=== PATIENT | female | born 1995 | race Caucasian/White ===

== ENCOUNTER 2020-07-15 13:24 | Emergency (ER) | payer OTHER, SELFPAY ==
[2020-07-15 13:32] VITALS: BP 122/86; PULSE 73; RESP 14; TEMP 37.3; O2SAT 99
--- NOTE | 2020-07-15 13:54 | ED.WOUNDLAC ---
HPI - Wound/Laceration General Chief Complaint: Wound/Laceration Stated Complaint: Rt eye swelling/pain Time Seen by Provider: 07/15/20 13:47 Source: patient and RN notes reviewed Mode of arrival: ambulatory Limitations: no limitations History of Present Illness HPI narrative: Patient presents today complaining of redness and swelling to the right upper eyelid, just below the eyebrow x2 days that has been worsening since onset. Patient states the area started out as a pimple before worsening. It has been draining clear fluid. Reports itching and slight pain. States she has had cellulitis to a similar area last year and needed IV antibiotics. Currently rates her pain /10 and has been applying Neosporin without relief. Related Data Allergies Allergy/AdvReac Type Severity Reaction Status Date / Time Cephalosporins Allergy Mild Unknown Verified 07/15/20 13:38 ceftriaxone [From Rocephin] Allergy Hives Verified 07/15/20 13:38 Review of Systems Review of Systems: Narrative: CONSTITUTIONAL: Denies body aches, fever, chills, or sweats. EYES: Denies visual changes, redness, or discharge. ENT: Denies rhinorrhea, congestion, sore throat, or otalgia. CARDIOVASCULAR: Denies chest pain, palpitations, or edema. RESPIRATORY: Denies cough or dyspnea. GASTROINTESTINAL: Denies abdominal pain, nausea, vomiting, or diarrhea. GENITOURINARY: Denies dysuria or hematuria. SKIN: +Swelling and redness to right upper eyelid MUSCULOSKELETAL: Denies back pain, joint pain, or myalgia. NEUROLOGIC: Denies headache, numbness, tingling, or weakness. PSYCH: Denies depression or anxiety. PMFSH Comments At time of signature, I have reviewed and agree with nursing past medical, surgical, social and family history unless otherwise noted. Please see nursing chart for further information. There is no relevant family history pertinent to the presenting complaint Exam Narrative: Exam Narrative: GENERAL: Well-appearing, well-nourished, and in no acute distress. HEAD: Normocephalic, atraumatic. EYES: EOMI. PERRL. No redness or drainage to the sclera. Conjunctivae normal. Right upper eyelid is mildly edematous and has a 1.5 cm round area of erythema and mild induration with a tiny scab. No fluctuance noted. Mildly tender to palpation. This edema does not extend above the eyebrow or to the lower eyelid. ENT: Mucous membranes pink and moist. NECK: Normal AROM. CHEST: No respiratory distress. EXTREMITIES: Normal range of motion. No edema. SKIN: Warm, dry, no rash. Capillary refill normal. Normal skin turgor. NEURO: No focal deficits. Alert and oriented x3. Gait steady. PSYCH: Normal affect. No signs of depression or anxiety. Course Vital Signs Vital signs: Vital Signs Temperature 99.2 F 07/15/20 13:32 Pulse Rate 73 07/15/20 13:32 Respiratory Rate 14 07/15/20 13:32 Blood Pressure 122/86 07/15/20 13:32 Pulse Oximetry 99 07/15/20 13:32 Temperature 99.2 F 07/15/20 13:32 Pulse Rate 73 07/15/20 13:32 Respiratory Rate 14 07/15/20 13:32 Blood Pressure 122/86 07/15/20 13:32 Pulse Oximetry 99 07/15/20 13:32 Reviewed. Pt has been instructed to follow up with her PCP regarding her elevated blood pressure today. MDM - Wound/Laceration Differential Diagnosis Differential diagnosis: Likely abscess and other (Cellulitis, impetigo) Critical Care Time Critical Care Time Critical Care Time: No Discharge Plan Discharge Clinical Impression: Cellulitis of right upper eyelid Patient Disposition: Home, Self-Care Condition: Stable Instructions: Antibiotic Form, Cellulitis (ED) Additional Instructions: Please take the Bactrim as prescribed until gone. Take ibuprofen or Aleve for swelling. Go to the ER immediately if symptoms worsen. Your blood pressure was elevated above 120/80 today at Urgent Care. This puts you above the threshold for follow up. Please schedule a followup visit with your personal physician as s
== END 2020-07-15 14:05 | disposition home or self-care (01) ==
PROVIDERS: Emergency Provider Nurse Practitioner
DX: H00.031 Abscess of right upper eyelid (principal)
CPT/HCPCS: 99203; G0463

== ENCOUNTER 2023-01-15 17:04 | Emergency (ER) | payer OTHER, SELFPAY ==
[2023-01-15 17:09] VITALS: BP 117/74; PULSE 101; RESP 20; TEMP 36.6; O2SAT 97
--- NOTE | 2023-01-15 17:37 | ED.DENTAL ---
HPI - Dental/Oral General Chief complaint: Dental/Oral Stated complaint: tooth pain Time Seen by Provider: 01/15/23 17:38 Mode of arrival: ambulatory Limitations: no limitations History of Present Illness HPI Narrative: 27-year-old female presents concern for toothache. She reports tooth pain in the right upper side of her mouth. She reports pain started today. She has taken ibuprofen. She denies problems swallowing, headache, fever. MD Complaint: tooth pain Related Data Allergies Allergy/AdvReac Type Severity Reaction Status Date / Time Cephalosporins Allergy Mild Unknown Verified 01/15/23 17:25 ceftriaxone [From Rocephin] Allergy Hives Verified 01/15/23 17:25 Review of Systems Review of Systems: CONSTITUTIONAL: Denies malaise, chills, sweats, or fever. EYES: Denies visual changes ENT: Denies rhinorrhea, congestion, sinus pain, otalgia or sore throat. Reports right upper dental pain CARDIOVASCULAR: Denies chest pain, palpitations RESPIRATORY: Denies cough or dyspnea. SKIN: Denies rash or itching. MUSCULOSKELETAL: Denies myalgia. NEUROLOGIC: Denies numbness, weakness, or headache. All systems reviewed & are unremarkable except as noted in HPI and below PMFSH Comments At time of signature, agree with nursing past medical, surgical, social and family history. There is no relevant family history pertinent to the presenting complaint Exam Narrative: GENERAL: Well-appearing, well-nourished, and in no acute distress. HEAD: Normocephalic, atraumatic. EYES: PERRLA, sclera clear ENT: Nares clear, turbinates pink, no rhinorrhea or epistaxis. Mucous membranes moist. TM pearly huizar with sharp light reflex bilaterally; no tragal tenderness. Oropharynx without erythema or lesions. Tonsils not enlarged and without exudate. Missing teeth, broken teeth, caries, tooth number two broken with a cane NECK: Supple. No lymphadenopathy. CHEST: No respiratory distress. Speaks in full sentences. HEART: Regular rate and rhythm. SKIN: Warm, dry, no visible rash. NEURO: Alert and oriented x3. PSYCH: Normal mood and affect Course Course Emergency Course: Patient is aware of diagnosis, understands and agrees to treatment plan. Anticipatory guidance given. Patient agrees to follow-up as directed and is aware of reasons to seek care at the emergency department. Portions of this record may have been created with voice recognition software Level of Care: Express Care Visit Vital Signs Vital signs: Vital Signs Temperature 97.9 F 01/15/23 17:09 Pulse Rate 101 H 01/15/23 17:09 Respiratory Rate 20 01/15/23 17:09 Blood Pressure 117/74 01/15/23 17:09 Pulse Oximetry 97 01/15/23 17:09 Oxygen Delivery Room Air 01/15/23 17:09 Temperature 97.9 F 01/15/23 17:09 Pulse Rate 101 H 01/15/23 17:09 Respiratory Rate 20 01/15/23 17:09 Blood Pressure 117/74 01/15/23 17:09 Pulse Oximetry 97 01/15/23 17:09 Oxygen Delivery Room Air 01/15/23 17:09 Reviewed. MDM - Dental/Oral MDM Narrative Medical decision making narrative: Patients pain and complaint coupled with physical findings are consistant with dentalgia. There are no focal signs of space occupying lesions that are compromising to the airway; no dysphagia, odynophagia, dysphonia, or dyspnea. No uvular deviation or soft palate edema. Patient is non-toxic appearing. The floor of the mouth is soft with no signs of Bhavesh's Angina; no induration below mandible, no neck pain. Patient is without trismus or drooling and able to swallow secretions. Patient is felt appropriate for discharge home with dental follow up. Differential Diagnosis Differential diagnosis: Likely gingival abscess, dental caries, toothache, dental abscess, fracture of tooth and aphthous ulcer Critical Care Time Critical Care Time Critical Care Time: No Discharge Plan Discharge Clinical Impression: Toothache Patient Disposition: Home, Self-Care Condition: Stable
== END 2023-01-15 17:45 | disposition home or self-care (01) ==
PROVIDERS: Emergency Provider Nurse Practitioner
DX: K08.89 Other specified disorders of teeth and supporting structures (principal)
CPT/HCPCS: 99213; G0463

== ENCOUNTER 2024-06-12 14:31 | Emergency (ER) | payer OTHER, SELFPAY ==
[2024-06-12 15:09] VITALS: BP 111/68; PULSE 83; RESP 16; TEMP 36.5; O2SAT 100
--- NOTE | 2024-06-12 16:21 | ED.SKABFB ---
HPI - Skin/Abscess/Foreign Bdy General Chief complaint: Skin/Abscess/Foreign Body Stated complaint: picking at right eye/swollen Time Seen by Provider: 06/12/24 15:35 Source: patient and RN notes reviewed Mode of arrival: ambulatory Limitations: no limitations History of Present Illness HPI narrative: 28-year-old female presents Express Care complaining of right eyelid swelling for 2 days. Patient has increased redness and swelling above the patient's right eye extending into her right eyebrow. Patient has a history of facial cellulitis and periorbital cellulitis. Patient reports she feels like her right vision is blurry and hazy. Patient reports that it hurts to move her right eye. Patient denies any fevers, chills, body aches, sore throat, congestion, dizziness, nausea, vomiting. Patient has been hospitalized in the past or cellulitis. Related Data Home Medications ?Medication ?Instructions ?Recorded ?Confirmed ?Last Taken ?Type iud 06/12/24 Unknown History Allergies Allergy/AdvReac Type Severity Reaction Status Date / Time Cephalosporins Allergy Mild Unknown Verified 01/15/23 17:25 vancomycin Allergy Unknown Unknown Verified 06/12/24 15:40 ceftriaxone (From Rocephin) Allergy Hives Verified 06/12/24 15:13 Review of Systems Review of Systems: CONSTITUTIONAL: Denies fever, chills, or sweats. EYES: Positive for blurry vision, negative for redness, or discharge. ENT: Denies rhinorrhea, congestion, sore throat, or otalgia. CARDIOVASCULAR: Denies chest pain, palpitations, or edema. RESPIRATORY: Denies cough or dyspnea. GASTROINTESTINAL: Denies abdominal pain, nausea, vomiting, or diarrhea. GENITOURINARY: Denies dysuria or hematuria. SKIN: Deniesr itching. Positive for rash and wound MUSCULOSKELETAL: Denies back pain, joint pain, or myalgia. NEUROLOGIC: Denies headache, numbness, or weakness. PSYCHIATRIC: Denies anxiety or depression. All other systems reviewed are negative, except as documented in HPI. PMFSH Comments At the time of my signature, I reviewed and agree with the nursing past medical, surgical, social, and family history. There is no relevant family history pertinent to the patient complaint. Exam Narrative: GENERAL: This is a well-nourished, well-developed adult, in no apparent distress. They are non ill-appearing, nontoxic appearing. HEAD: normocephalic, atraumatic. EYES: Sclera clear/white. Conjunctiva normal. Vision is grossly intact. Extraocular movements intact. Pupils PERRLA. EARS: External ears normal, auditory canals clear and without drainage, TMs normal without perforation. Hearing grossly intact. NOSE: External nose normal with no obvious nasal discharge, nasal turbinates without redness, no rhinorrhea. THROAT: Mucous membranes moist, posterior pharynx clear, without erythema or swelling. Uvula midline. NECK: Neck supple, non-tender without lymphadenopathy, masses or thyromegaly. CARDIOVASCULAR: Regular rate and rhythm without murmurs, gallops, or rubs. RESPIRATORY: Clear to auscultation. Breath sounds equal bilaterally. No wheezes, rales, or rhonchi. SKIN: Face: Cellulitis present above the patient's right eye and right eyelid extending into her right eyebrow and medial periorbital space. Area of cellulitis is measuring approximately 6 cm long. Area of cellulitis is erythematous. There is a small pustule superior to the cellulitis measuring approximately 1 cm x 1 cm surrounding erythema. No induration or area of fluctuance. No exudate. NEURO: awake, alert, and oriented to person, place and time. There were no obvious focal neurologic abnormalities. EXTREMITIES: No joint tenderness, effusion, or edema noted. Course Course Emergency Course: Portions of this record may have been created with voice recognition software [id number] patient called after being discharged requesting her prescriptions to be sent to [facility] instead because her pharmacy is currently closed. Prescriptions were canceled and sent to [facility] in in [place]. Level of Care: Express Care Visit Vital Signs Vital signs: Vital Signs Temperature 97.7 F 06/12/24 15:09 Pulse Rate 83 06/12/24 15:09 Respiratory Rate 16 06/12/24 15:09 Blood Pressure 111/68 06/12/24 15:09 Pulse Oximetry 100 06/12/24 15:09 Oxygen Delivery Room Air 06/12/24 15:09 Temperature 97.7 F 06/12/24 15:09 Pulse Rate 83 06/12/24 15:09 Respiratory Rate 16 06/12/24 15:09 Blood Pressure 111/68 06/12/24 15:09 Pulse Oximetry 100 06/12/24 15:09 Oxygen Delivery Room Air 06/12/24 15:09 Reviewed MDM - Skin/Abscess/Foreign Bdy MDM Narrative Medical decision making narrative: Given patient's vision changes in symptoms she was advised that she should go to the emergency department immediately for higher level care for further evaluation and management of her symptoms. Patient adamantly declined to go to the emergency room. Patient is signed out against medical advice. Will prescribe patient Augmentin and Bactrim to treat the cellulitis. Patient is allergic to cephalosporins but she has tolerated amoxicillin in the past. Patient advised to still go to the emergency department immediately and especially if her symptoms worsen today. Differential Diagnosis Differential diagnosis: Likely abscess of skin or subcutaneous tissue and other (Orbital cellulitis, periorbital cellulitis) Critical Care Time Critical Care Time Critical Care Time: No Discharge Plan Discharge Clinical Impression: Periorbital cellulitis of right eye Patient Disposition: Left Against Medical Advice Condition: Stable Additional Instructions: You have decided to leave against medical advice. It is recommended to go to the ER immediately. Please take antibiotics as directed. If your symptoms do not get better in 1 day you need to go to the ER immediately. Patient Language: Sudanese Prescriptions: New sulfamethoxazole-trimethoprim [Bactrim DS] 800-160 mg tablet 1 tablet PO Q12H 7 Days Qty: 14 0RF amoxicillin-pot clavulanate 875-125 mg tablet 1 tablet PO Q12H 7 Days Qty: 14 0RF No Action clindamycin HCl 300 mg capsule 300 mg PO Q8H 7 Days Qty: 21 0RF ibuprofen 800 mg tablet 800 mg PO Q6H PRN (Reason: pain) Qty: 30 0RF iud Follow-up/Referrals: PHYSICIAN,CUSTOMER SUPPORT ASSOCIATE [Primary Care Provider] - Time of Disposition: 15:39
--- OUTSIDE RECORDS SUMMARY | 2024-06-12 16:41 | XMS_ITS | Clinical Summary ---
Author Organization [facility] Address [address], [address] [address] Phone Care Team Providers Care Wire Coating Operator Metal Name Role Phone Chadwick Ballesteros MD Primary Care Provider [phone] Fercho Cooper MD Unavailable [phone] Allergies Active Allergy Reactions Criticality Noted Date Comments Ceftriaxone Sodium In Dextrose Hives 01/02 Medications mirtazapine (REMERON) 15 MG Tablet Take 15 mg by mouth daily. 5 Active lidocaine (XYLOCAINE) 2 % Gel 3 times daily. 0 5 Active ibuprofen (MOTRIN) 600 MG Tablet Take 600 mg by mouth every 6 hours as needed. 5 Active Etonogestrel (IMPLANON SC) by Subcutaneous route. Active Ondansetron HCl (ZOFRAN PO) Take 1 Tab by mouth as needed. Active lamoTRIgine (LAMICTAL) 25 MG Tablet Take 25 mg by mouth daily. Active polyethylene glycol (GLYCOLAX, MIRALAX) Pack Take 1 Packet by mouth daily. Dissolve in 4-8 oz of liquid. 90 Packet 3 5 Active other 1 Inch by Other route 2 times daily. 100 mL 1 5 Active Active Problems No known active problems Family History Medical History Relation Name Comments Cancer Maternal Grandfather prostat e Emphysema Maternal Grandfather Cancer Maternal Grandmother breast Diabetes Maternal Grandmother Heart Attack Maternal Grandmother Hypertension Maternal Grandmother Stroke Maternal Grandmother Diabetes Paternal Grandfather Relation Name Status Comments Maternal Grandfather Maternal Grandmother Paternal Grandfather Social History Tobacco Use Types Packs/Day Years Used Date Smoking Tobacco: Every Day Cigarettes 0.5 3 Smokeless Tobacco: Never Tobacco Cessation:Ready to Q uit: No; Counseling Given: Yes Alcohol Use Standard Drinks/Week Comments No 0 (1 standard drink = 0.6 oz pur e alcohol) Comments No Sex and Gender Information Value Date Recorded Sex Assigned at Not on file Legal Sex Female 9:58 PM CDT Gender Identity Not on file Sexual Orientation Not on file Last Filed Vital Signs Vital Sign Reading Time Taken Comments Blood Pressure 120/76 01/04/2015 11:05 AM PIN BALL MACHINE MECHANIC Pulse 84 01/04/2015 11:05 AM PIN BALL MACHINE MECHANIC Temperature 37.4 C (99.3 F) 01/04/2015 11:05 AM PIN BALL MACHINE MECHANIC Respiratory Rate - - Oxygen Saturation - - Inhaled Oxygen Concentration - - Weight 53.3 kg (117 lb 6.4 oz) 01/04/2015 11:05 AM PIN BALL MACHINE MECHANIC Height 162.6 cm (5' 4 ) 01/04/2015 11:05 AM PIN BALL MACHINE MECHANIC Body Mass Index 20.15 01/04/2015 11:05 AM PIN BALL MACHINE MECHANIC Plan of Treatment Health Maintenance Due Date Last Done Comments Hepatitis C Virus (HCV) Screening 1995 TdaP Immunization 1995 Hepatitis B Immunization (1 of 3 - 19+ 3-dose series) 09/01/2014 Pap Smear 09/01/2016 Influenza Immunization (#1) 2023 SARS-COV-2 Immunization ( season) 2023 Respiratory Syncytial Virus (RSV) Immunization (Adult) (1 - 1-dose 75+ series) 09/01/2070 Meningococcal Immunization (ACWY) Aged Out No longer eligible based on patient's age to complete this topic Pneumococcal Immunization Combined Aged Out No longer eligible based on patient's age to complete this topic Rotavirus Immunization Aged Out No lo nger eligible based on patient's age to complete this topic Insurance MEDICAID [employer] Care Teams Wire Coating Operator Metal Relationship Specialty Start Date End Date Chadwick Ballesteros MD [address] [address] PCP - General Pediatrics 01/04/15 Fercho Cooper MD [address] [address] General Surgery 01/19/15
--- OUTSIDE RECORDS SUMMARY | 2024-06-12 16:41 | XMS_ITS | Clinical Summary ---
Author Organization [facility] Address [address] [place] [address] Care Team Providers Care Metal Model Maker Name Role Phone Chadwick Ballesteros MD Primary Care Provider [phone] Source Comments [facility],non-owned Affiliates and Associated Physician Practices is amultiple site organization consisting of ambulatory clinics and hospital sitesin [place], [place], [place] and [place]. This disclosure is being madepursuant to the Care Everywhere program and may not contain all information available regarding this patient. Last updated 17.[facility] Allergies Active Allergy Reactions Criticality Noted Date Comments Ceftriaxone 02/22/2013 Medications * This document contains information received from the source organization and may not represent a complete record from that organization. * Be aware that medications may not be up to date on this document. Alwaysverify current medications with the patient. promethazine (PHENERGAN) 25 MG tablet Take 25 mg by mouth every 6 hours as needed for Nausea/Vomi ting. Active escitalopram (LEXAPRO) 10 MG tablet Take 10 mg by mouth once daily. Active cyclobenzaprine (FLEXERIL) 5 MG TABS tablet Take 5 mg by mouth 3 times daily as needed. Active naproxen (NAPROSYN) 500 MG tablet Take 1 Tab by mouth 2 times daily. 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 Anxiety 02/22/2013 Supervision of normal first 02/22/2013 Current smoker 02/22/2013 Family History Medical History Relation Name Comments Cancer Maternal Grandfather Aneurysm Maternal Grandmother CAD (Coronary Artery Disease) Maternal Grandmother Cancer - Breast Maternal Grandmother Diabetes Maternal Grandmother Kidney Disease Maternal Grandmother Spine problems Mother spondylo, dis abled Relation Name Status Comments Maternal Grandfather Maternal Grandmother Mother Social History Tobacco Use Types Packs/Day Years Used Date Smoking Tobacco: Every Day Cigarettes Alcohol Use Standard Drinks/Week Comments No 0 (1 standard drink = 0.6 oz pur e alcohol) Comments No Sex and Gender Information Value Date Recorded Sex Assigned at Not on file Legal Sex Female 6:57 AM DIRECTOR OF FOOD AND NUTRITION Gender Identity Not on file Sexual Orientation Not on file Last Filed Vital Signs Vital Sign Reading Time Taken Comments Blood Pressure 104/50 03/01/2014 12:00 AM DIRECTOR OF FOOD AND NUTRITION Pulse 60 03/01/2014 12:00 AM DIRECTOR OF FOOD AND NUTRITION Temperature - - Respiratory Rate - - Oxygen Saturation - - Inhaled Oxygen Concentration - - Weight 49.1 kg (108 lb 3.9 oz) 03/01/2014 12:52 PM DIRECTOR OF FOOD AND NUTRITION Height 159 cm (5' 2.6 ) 03/01/2014 12:52 PM DIRECTOR OF FOOD AND NUTRITION Body Mass Index 19.42 03/01/2014 12:52 PM DIRECTOR OF FOOD AND NUTRITION Plan of Treatment Health Maintenance Due Date Last Done Comments HIV SCREENING 09/01/2010 HEPATITIS C SCREENING 08/28/2013 DTAP/TDAP/TD VACCINES (1 - Tdap) 09/01/2014 HEPATITIS B VACCINE (1 of 3 - 19+ 3-dose series) 09/01/2014 PNEUMOCOCCAL VACCINE (1 of 2 - PCV) 09/01/2014 COVID-19 VACCINE (1 - 2023-2 5 season) 2023 DEPRESSION SCREENING 02/11/2024 INFLUENZA VACCINE (Season Ended) 2024 ZOSTER VACCINE (1 of 2) 09/01/2045 HIB VACCINE Aged Out No longer eligi ble based on patient's age to complete this topic HPV VACCINE Aged Out No longer eligi ble based on patient's age to complete this topic MENINGOCOCCAL (Group B) VACC INE SHARED DECISION-MAKING Aged Out No longer eligibl e based on patient's age to complete this topic MENINGOCOCCAL GROUPS A/C/Y/W VACCINE Aged Out No longer eligible b ased on patient's age to complete this topic Insurance MEDICAID - [place] Care Teams Metal Model Maker Relationship Specialty Start Date End Date Chadwick Ballesteros MD [address] [place] [address] PCP - General Pediatrics 02/16/14
--- OUTSIDE RECORDS SUMMARY | 2024-06-12 16:41 | XMS_ITS | Patient Health Record ---
Author Organization [facility] Address [address] [place] [address] Care Team Providers Care Office Administrator Name Role Phone Zoraidareji Madina Primary Care Provider [phone] Lorenzo Ann [phone] Allergies Allergen (clinical drug ingredient) Drug/Non Drug Allergy documented on EMR Reaction Allergy Type Onset Date Status Rocephin Unknown Drug Allergy Active Results Component Value Reference Range Notes 12 Panel Urine Drug Screen Reviewed date:01/13/2024 10:09:36 AM Interpretation: Performing Lab: Notes/Report: THC POS ZA POS MOP (OPI) neg AMP POS MET POS BAR neg BZO POS MDMA POS MTD neg OXY neg PCP neg BUP POS 12 Panel Urine Drug Screen Reviewed date:01/06/2024 10:53:02 AM Interpretation: Performing Lab: Notes/Report: THC POS ZA POS MOP (OPI) neg AMP POS MET POS BAR neg BZO POS MDMA POS MTD neg OXY neg PCP neg BUP POS Reason For Referral No Information Medications Medication SIG (Take, Route, Frequency, Duration) Notes Start Date End Date Status Buprenorphine HCl-Naloxone HCl 8-2 MG 1 film under the tongue and allow to dissolve Sublingual three times per day 01/13/2024 Active Immunizations Vaccine Route Administration Date Status Comme nts FLU VAC NO PRSV 4VAL 6 mo+ IM Intramuscular 01/06/2019 Administered pt tolerated we ll. Social History Tobacco Use: Social History Observation Description Date Details (start date - stop date) Current Smoker NA - NA Sex Assigned At : Social History Observation Description Sex Assigned At Female Tobacco Control (Standard) Question Answer Notes Tobacco use: Current smoker Section Notes: Problems Problem Type SNOMED Code ICD Code Onset Dates Problem Status W/U Status Risk Notes Problem Insomnia (517903232) Insomnia (G47.00) Active confirmed Problem 26474533 SANDRA (generalized anxiety disorder) (F41.1) Active confirmed Problem Overweight (BMI 25.0-29.9) (E66.3) Active confirmed Problem Hepatitis C antibody detected (finding) (987104409) Hepatitis C antibody positive in blood (R76.8) Active confirmed Problem 563422485 Tobacco use disorder (F17.200) Active confirmed Problem 36243179 Opioid use disorder, severe, dependence (F11.20) Active confirmed Problem Opioid use disorder (4030939011) Opioid use disorder (F11.99) Active confirmed Vital Signs Heart Rate 82 /min 01/13/2024 Temperature 98.2 degrees Fahrenheit 01/13/2024 Respiratory Rate 16 /min 01/13/2024 Blood pressure diastolic 76 mm Hg 01/13/2024 Oximetry 98 % 01/13/2024 Height 63 in 01/13/2024 Blood pressure systolic 120 mm Hg 01/13/2024 Weight 149.4 lbs 01/13/2024 BMI 26.46 kg/m2 01/13/2024 Encounters Encounter Location Date Provider Diagnosis [address] [place] [address] 01/06/2024 Jenia Heavens Opioid use disorder F11.99 ; Overweight (BMI 25.0-29.9) E66.3 and Tobacco use disorder F17.[address] [place] [address] 01/13/2024 Jenia Heavens Opioid use disorder F11.99 ; Opioid use disorder F11.99 ; Overweight (BMI 25.0-29.9) E66.3 and Tobacco use disorder F17.200 Assessments Encounter Date Diagnosis (ICD Code) Assessment Notes Treatment Notes Treatment Clinical Notes Section Notes 01/06/2024 Overweight (BMI 25.0-29.9) (ICD-10 - E66.3) 01/06/2024 Opioid use disorder (ICD-10 - F11.99) 01/13/2024 Overweight (BMI 25.0-29.9) (ICD-10 - E66.3) 01/13/2024 Opioid use disorder (ICD-10 - F11.99) 01/13/2024 Opioid use disorder (ICD-10 - F11.99) 01/13/2024 Tobacco use disorder (ICD-10 - F17.200) 01/06/2024 Tobacco use disorder (ICD-10 - F17.200) 01/06/2024 Other Discussed medication side effects, adverse effects, risks, benefits, as well as interactions. Encouraged non-use of opioids. Has naloxone. Recommended participation in recovery groups/counseling services. Agrees to contact office with questions or concerns. 01/13/2024 Other Patient agrees to take medication as prescribed. Discussed medication side effects, adverse effects, risks, benefits, as well as interactions. Encouraged non-use of opioids. Has naloxone. Recommended participation in recovery groups and/or counseling services. May contact office with questions or concerns. Plan Of Treatment No Information Insurance Providers Payer Name Payer Address Payer Phone Subscriber Number Group Number Insured Name Patient Relationship to Insured Coverage Start Date Coverage End Date [facility] [employer] [address] [place] [address] [id number] Matthews Betyvolodymyr Self - patient is the insured 1 [facility] Att Claims Department [address] [place] [address] [id number] Byron Betyvolodymyr Self - patient is the insured 9 0 [facility] [address] [place] [address] [id number] MatthewsJamaal Self - patient is the insured 0 0 [facility] [address] [place] [address] [id number] ByronJamaal Self - patient is the insured 1 Medications Administered Medication Instructions Date of Administration Dosage Notes Vivitrol 01/22/2019 380 mg pt tolerated w ell and nurse instructed pt to massage area over next couple of days and pt voiced understanding. Vivitrol 02/24/2019 380 mg Color Mixer Jesi moreno. Pt tolerated well. Voiced no questions or concerns at present time. Vivitrol 03/25/2019 380 mg Color Mixer: Alkermes Tolerated well, Instructed to massage site over next couple days to prevent knot. verbalized understanding. Vivitrol 04/22/2019 380 mg Color Mixer A lkermes Pt tolerated procedure well. No questions or concerns voiced. Vivitrol 05/17/2020 380 mg Color Mixer A lkermes. Pt tolerated well. Voiced no questions or concerns at present time. Medical (General) History Medical History History ICD Code Opioid Use Disorder Substance Use Disorder (meth) Surgical History Surgery Date(Month/Year) Denies Hospitalization History Reason Date(Month/Year) Detox 12/2023 Cellulitis
--- OUTSIDE RECORDS SUMMARY | 2024-06-12 16:41 | XMS_ITS | Encounter Summary ---
Author Organization [facility] Address [address] [facility] [place] [address] Care Team Providers Care Auto Haulaway Driver Name Role Phone Chadwick Ballesteros MD Primary Care Provider [phone] Encounter Details Date Type Department Care Team (Late st Contact Info) Description 03/26/2013 Telephone [facility] Women's Health Maternal & Care [address] [place] [address] Krys Rodriges, [facility] [place] [address] [place] [address] Social History Tobacco Use Types Packs/Day Years Used Date Smoking Tobacco: Every Day Cigarettes Alcohol Use Standard Drinks/Week Comments No 0 (1 standard drink = 0.6 oz pur e alcohol) Comments Yes Sex and Gender Information Value Date Recorded Sex Assigned at Not on file Legal Sex Female 6:57 AM SALT REFINER Gender Identity Not on file Sexual Orientation Not on file documented as of this encounter Plan of Treatment Not on file documented as of this encounter Visit Diagnoses Not on filedocumented in this encounter Care Teams Auto Haulaway Driver Relationship Specialty Start Date End Date Chadwick Ballesteros MD [address] [place] [address] PCP - General Pediatrics 02/16/14 documented as of this encounter
== END 2024-06-12 15:45 | disposition left against medical advice (07) ==
DX: L03.213 Periorbital cellulitis (principal)
CPT/HCPCS: 99213; G0463

== ENCOUNTER 2024-12-13 18:52 | Emergency (ER) | payer OTHER, SELFPAY ==
--- OUTSIDE RECORDS SUMMARY | 2024-12-13 18:55 | XMS_ITS | Clinical Summary ---
Author Organization [facility] Address [address], [address] [address] Phone Care Team Providers Care Cephalometric Analyst Name Role Phone Chadwick Ballesteros MD Primary Care Provider Fercho Cooper MD Unavailable [phone] Allergies Active Allergy Reactions Criticality Noted Date [...] Comments Blood Pressure 120/76 01/04/2015 11:05 AM SECURITY INSTALLER Pulse 84 01/04/2015 11:05 AM SECURITY INSTALLER Temperature 37.4 C (99.3 F) 01/04/2015 11:05 AM SECURITY INSTALLER Respiratory Rate - - Oxygen Saturation - - Inhaled Oxygen Concentration - - Weight 53.3 kg (117 lb 6.4 oz) 01/04/2015 11:05 AM SECURITY INSTALLER Height 162.6 cm (5' 4) 01/04/2015 11:05 AM SECURITY INSTALLER Body Mass Index 20.15 01/04/2015 11:05 AM SECURITY INSTALLER Plan of Treatment Health Maintenance Due Date Last Done Comments Hepatitis C Virus (HCV) Screening 1995 TdaP Immunization 1995 Hepatitis B Immunization (1 of 3 - 19+ 3-dose series) 09/01/2014 Human Papillomavirus (HPV) Immunization (1 - 3-dose SCDM series) 09/01/2022 Influenza Immunization (#1) 2024 SARS-COV-2 Immunization ( - 2023- season) 2024 Respiratory Syncytial Virus (RSV) Immunization (Adult) (1 [...] Insurance MEDICAID [employer] Care Teams Cephalometric Analyst Relationship Specialty Start Date End Date Chadwick Ballesteros MD [address] [place] [address] PCP - General Pediatrics 01/04/15 Fercho Cooper MD [address] [place] [address] General Surgery 01/19/15
--- OUTSIDE RECORDS SUMMARY | 2024-12-13 18:55 | XMS_ITS | Patient Health Record ---
Author Organization [facility] Address [address] [place] [address] Care Team Providers Care Landscape Photographer Name Role Phone Zoraidayamilarufinamalcolm Madina Primary Care Provider [phone] Lorenzo Ann [phone] Allergies Allergen (clinical drug ingredient) Drug/Non Drug Allergy documented on EMR Reaction Allergy Type Onset Date Status Rocephin Unknown Drug Allergy Active Results Component Value Reference Range Notes 12 Panel Urine Drug Screen Reviewed date:01/06/2024 10:53:02 AM Interpretation: Performing Lab: Notes/Report: THC POS ZA POS MOP (OPI) neg AMP POS MET POS BAR neg BZO POS MDMA POS MTD neg OXY neg PCP neg BUP POS 12 Panel Urine Drug Screen Reviewed date:01/13/2024 [...] Status W/U Status Risk Notes Problem Insomnia (339788029) Insomnia (G47.00) Active confirmed Problem Generalized anxiety disorder (74268182) SANDRA (generalized anxiety disorder) (F41.1) Active confirmed Problem Overweight (595013190) Overweight (BMI 25.0-29.9) (E66.3) Active confirmed Problem Hepatitis C antibody detected (finding) (023702580) Hepatitis C antibody positive in blood (R76.8) Active confirmed Problem Tobacco use (739967769) Tobacco use disorder (F17.200) Active confirmed Problem Opioid dependence (17598652) Opioid use disorder, severe, dependence (F11.20) Active confirmed Problem Opioid use disorder (9149223381) Opioid use disorder (F11.99) Active confirmed Vital Signs Heart Rate 82 /min 01/13/2024 Temperature 98.2 degrees Fahrenheit 01/13/2024 Respiratory Rate 16 /min 01/13/2024 Oximetry 98 % 01/13/2024 Blood pressure diastolic 76 mm Hg 01/13/2024 Height 63 in 01/13/2024 Blood pressure systolic 120 mm Hg 01/13/2024 Weight 149.4 lbs 01/13/2024 BMI 26.46 kg/m2 01/13/2024 Encounters Encounter Location Date Provider Diagnosis [address] [place] [address] 01/06/2024 Jenia Heavens Opioid use disorder F11.99 ; Overweight (BMI 25.0-29.9) E66.3 and Tobacco use disorder F17.[address] [place] [address] 01/13/2024 Jenia Heavens Opioid use disorder F11.99 [...] Insured Coverage Start Date Coverage End Date [employer] [address] [place] [address] [id number] Byron Shaynarussell Self - patient is the insured 1 [facility] Attn Claims Department [address] [place] [address] [id number] Byron Betyvolodymyr Self - patient is the insured 9 0 [employer] ([employer] [address] [place] [address] [id number] Byron Betyvolodymyr Self - patient is the insured 0 0 [employer] [facility] [address] [place] [address] [id number] Byron Betyvolodymyr Self - patient is the insured 1 Medications Administered Medication Instructions Date of Administration Dosage Notes Vivitrol 01/22/2019 380 mg pt tolerated w ell and nurse instructed pt to massage area over next couple of days and pt voiced understanding. Vivitrol 02/24/2019 380 mg Communications Electrician Supervisor A lkermes. Pt tolerated well. Voiced no questions or concerns at present time. Vivitrol 03/25/2019 380 mg Communications Electrician Supervisor: Alkermes Tolerated well, Instructed to massage site over next couple days to prevent knot. verbalized understanding. Vivitrol 04/22/2019 380 mg Communications Electrician Supervisor A lkermes Pt tolerated procedure well. No questions or concerns voiced. Vivitrol 05/17/2020 380 mg Communications Electrician Supervisor A lkermes. Pt tolerated well. Voiced no questions or concerns at present time. Medical (General) History Medical History History ICD Code Opioid Use Disorder Substance Use Disorder (meth) Surgical History Surgery Date(Month/Year) Denies Hospitalization History Reason Date(Month/Year) Detox 12/2023 Cellulitis
--- OUTSIDE RECORDS SUMMARY | 2024-12-13 18:55 | XMS_ITS | Encounter Summary ---
Author Organization [facility] Address [address] [facility] [place] [address] Care Team Providers Care Transfer And Pumphouse Operator Name Role Phone Chadwick Ballesteros MD Primary Care Provider [phone] Encounter Details Date Type Department Care Team (Late st Contact Info) Description 03/26/2013 Telephone [facility] Women's Health Maternal & Care [address] [place] [address] Krys Rodriges, [facility] [place] [address] [place] [address] Social History Tobacco Use Types Packs/Day Years Used Date Smoking Tobacco: Every Day Cigarettes Alcohol Use Standard Drinks/Week Comments No 0 (1 standard drink = 0.6 oz pur e alcohol) Comments Yes Sex and Gender Information Value Date Recorded Sex Assigned at Not on file Legal Sex Female 6:57 AM SECOND HAND Gender Identity Not on file Sexual Orientation Not on file documented as of this encounter Plan of Treatment Not on file documented as of this encounter Visit Diagnoses Not on filedocumented in this encounter Care Teams Transfer And Pumphouse Operator Relationship Specialty Start Date End Date Chadwick Ballesteros MD [address] [place] [address] PCP - General Pediatrics 02/16/14 documented as of this encounter
[2024-12-13 19:02] VITALS: BP 125/72; PULSE 86; RESP 20; TEMP 36.7; O2SAT 100
--- NOTE | 2024-12-13 19:14 | ED_ITS ---
HPI - Dental/Oral General Chief complaint: Dental/Oral Stated complaint: ear pain, throat pain, right tooth pain top&bottom Time Seen by Provider: 12/13/24 19:15 Source: patient, RN notes reviewed and old records reviewed Mode of arrival: ambulatory Limitations: no limitations History of Present Illness HPI Narrative: 29-year-old female presents to the [facility] with ear pain, throat pain, right upper and lower dental pain. Symptoms for 2-3 weeks. Related Data Home Medications ?Medication ?Instructions ?Recorded ?Confirmed ?Last Taken ?Type iud 06/12/24 Unknown History Allergies Allergy/AdvReac Type Severity Reaction Status Date / Time Cephalosporins Allergy Mild Unknown Verified 12/13/24 19:02 vancomycin Allergy Unknown Unknown Verified 12/13/24 19:02 ceftriaxone (From Rocephin) Allergy Hives Verified 12/13/24 19:02 Review of Systems Review of Systems: All systems reviewed & are unremarkable except as noted in HPI and below Constitutional: Constitutional: Reports no additional constitutional complaints ENT: Reports as per HPI, Reports dental pain, Reports otalgia and Reports sore throat Cardiovascular: Cardiovascular: Reports no additional cardiovascular complaints, Denies chest pain and Denies dyspnea Respiratory: Respiratory: Reports no additional respiratory complaints, Denies chest congestion, Denies cough and Denies dyspnea Musculoskeletal: Musculoskeletal: Reports no additional musculoskeletal complaints Integumentary/Breasts: Skin/Breast: Reports system reviewed and no additional complaints, except as docu PMFSH Comments At the time of my signature, I reviewed and agree with the nursing past medical, surgical, social, and family history. There is no relevant family history pertinent to the patient complaint. Exam Const: General: cooperative, healthy appearing, comfortable, no acute distress, well developed, alert and well nourished Nutritional Appearance: well nourished Orientation/consciousness: patient oriented x3 Limitations: no limitations HENMT: Head: normal to inspection Ears: hearing grossly normal bilaterally, external ears normal, TM's normal bilaterally, EAC's normal, mastoids normal and no periauricular adenopathy Mouth: Yes Normal oral and palatal mucosa present, Yes lip normal, Yes tongue normal and Yes moist mucous membranes Teeth and gingiva: abnormal tooth and associated gingiva and poor dentition Throat: posterior oropharynx normal and uvula midline Eyes: General: appearance normal, both eyes and all related structures Alignment and Position: alignment normal Neck: Neck: normal visual inspection, full ROM, no lymphadenopathy and no meningeal signs Chest: Chest palpation & inspection: normal inspection of the chest Resp: Effort & Inspection: normal respiratory effort and able to speak in complete sentences Auscultation: clear to auscultation bilaterally, no crackles, no rales, no rhonchi and no wheezes Cardio: Rate: regular rate Skin: General skin exam: normal color and no rashes or lesions noted Neuro: General: patient oriented x3, gait normal, moves all extremities and no meningeal signs Cognition (Neuro): normal cognition Speech: normal speech Gait exam (Neuro): Normal gait present Extrem: General: normal to inspection, full ROM, capillary refill normal and normal gait Psych: Appearance: grossly normal and well kempt Mental Status: mental status grossly normal Speech and movement: Normal speech and movement present and Clear speech present Affect: normal affect Attitude: cooperative Course Course Level of Care: Express Care Visit Vital Signs Vital signs: Vital Signs Temperature 98.1 F 12/13/24 19:02 Pulse Rate 86 12/13/24 19:02 Respiratory Rate 20 12/13/24 19:02 Blood Pressure 125/72 12/13/24 19:02 Pulse Oximetry 100 12/13/24 19:02 Oxygen Delivery Room Air 12/13/24 19:02 Temperature 98.1 F 12/13/24 19:02 Pulse Rate 86 12/13/24 19:02 Respiratory Rate 20 12/13/24 19:02 Blood Pressure 125/72 12/13/24 19:02 Pulse Oximetry 100 12/13/24 19:02 Oxygen Delivery Room Air 12/13/24 19:02 Reviewed MDM - Dental/Oral MDM Narrative Medical decision making narrative: Patient sitting in exam room. Patient is nontoxic, patient presents with dental pain, sore throat ear pain. Patient being prescribed amoxicillin for dental infection. Patient is appropriate for outpatient treatment with close follow-up Discharge instructions reviewed with patient, as well as provided in writing per nursing staff. The instructions also include specific and strict return/GO TO THE ER as well as f/u information. All questions have been answered, and the patient deny any further questions with discharge and discharge plan. Some parts of this dictation were generated by voice recognition software and may contain typographical and/or grammatical inaccuracies. Differential Diagnosis Differential diagnosis: Likely gingival abscess, dental caries, toothache, dental abscess and fracture of tooth Critical Care Time Critical Care Time Critical Care Time: No Discharge Plan Discharge Clinical Impression: Toothache, Dental caries, Dental infection Acute tonsillitis Qualifiers: Pharyngitis/tonsillitis etiology: unspecified etiology Qualified Code(s): J03. 90 - Acute tonsillitis, unspecified Patient Disposition: Home Condition: Stable Instructions: Antibiotic Form, Dental Abscess (ED) Additional Instructions: After 24-48 hours on antibiotics, Throw the toothbrush away, start using a new one. Please be sure to wash bed linens especially pillow cases. Repeat once you finish the antibiotics. Do not share drinks. Take Motrin alternating with Tylenol for pain and fever alternating every 4 hours. Increase fluids, avoid caffeine. Give plenty of water, juice, Gatorade, Pedialyte, ice pops in Jell-O Follow up with Primary provider if not getting better this week For new or worsening symptoms go directly to the emergency room Patient Language: Turkish Prescriptions: New amoxicillin-pot clavulanate 875-125 mg tablet 1 tablet PO Q12H Qty: 20 0RF No Action ibuprofen 800 mg tablet 800 mg PO Q6H PRN (Reason: pain) Qty: 30 0RF iud Follow-up/Referrals: UNKNOWN,DOCTOR [Primary Care Provider] Stand Alone Forms: Work/School Release IP Time of Disposition: 19:19
== END 2024-12-13 19:24 | disposition home or self-care (01) ==
PROVIDERS: Emergency Provider Nurse Practitioner
DX: K02.9 Dental caries, unspecified (principal); K04.7 Periapical abscess without sinus; J03.90 Acute tonsillitis, unspecified
CPT/HCPCS: 99213; G0463